=== PATIENT | female | born 1980 | race Caucasian/White ===

== ENCOUNTER 2019-01-23 10:19 | Emergency (ER) | payer MEDICAID ==
[~2019-01-23] VITALS: Ht 167.6 cm; Wt 60.1 kg
[2019-01-23 10:26] VITALS: BP 106/79
[2019-01-23] MEDS ORDERED: mupirocin 2% ointment 22GM TP ONE (11:45)
[2019-01-23] MEDS ORDERED: TETanus/Pertussis (Acell)/Diphther VAC/PF (Tdap-Adult) 0.5ml syringe IMVAC ONE (11:45)
[2019-01-23] MEDS ORDERED: MUPI22OI30 TOP (11:48)
== END 2019-01-23 12:22 | disposition home or self-care (01) ==
LOC: ER 10:20
DX: T25.011A Burn of unspecified degree of right ankle, initial encounter (principal); Z88.0 Allergy status to penicillin; X12.XXXA Contact with other hot fluids, initial encounter; Y93.89 Activity, other specified; Y92.89 Other specified places as the place of occurrence of the external cause; Y99.9 Unspecified external cause status
CPT/HCPCS: 16020; 90471; 99284

== ENCOUNTER 2019-08-07 17:02 | Emergency (ER) | payer MEDICAID ==
[~2019-08-07] VITALS: Ht 167.6 cm; Wt 56.8 kg
[~2019-08-07 17:02] MED LIST: MUPI22OI30 TOP
[2019-08-07 17:05] VITALS: BP 129/82
== END 2019-08-07 19:36 | disposition left against medical advice (07) ==
LOC: ER 17:03
DX: T14.8XXA Other injury of unspecified body region, initial encounter (principal); Z53.21 Procedure and treatment not carried out due to patient leaving prior to being seen by health care provider; X58.XXXA Exposure to other specified factors, initial encounter; Y93.89 Activity, other specified; Y92.89 Other specified places as the place of occurrence of the external cause; Y99.8 Other external cause status

== ENCOUNTER 2021-02-21 01:35 | Emergency (ER) | payer MEDICAID ==
[~2021-02-21] VITALS: Ht 165.1 cm; Wt 54.0 kg
[2021-02-21 02:12] VITALS: BP 128/91
[2021-02-21 02:33] LABS: CLARITY,URINE SLIGHTLY CLOUDY (Clear); COLOR,URINE YELLOW (Yellow); GLUCOSE, URINE NEGATIVE (Neg); KETONES,URINE NEGATIVE (Neg); LEUKOCYTE ESTERASE ,URINE NEGATIVE (Neg); NITRITES, URINE NEGATIVE (Neg); OCCULT BLOOD,URINE LARGE (Neg); PROTEIN,URINE NEGATIVE (Neg); URINE HCG NEGATIVE (NEG); UROBILINOGEN,URINE 0.2 E.U/dL (0.2-1.0)
[2021-02-21] MEDS ORDERED: metroNIDAZOLE 500mg tablet PO ONE (02:35)
[2021-02-21] MEDS ORDERED: CefTRIAXone 250MG IM Kit w/LIDOcaine IM ONE (02:35)
[2021-02-21] MEDS ORDERED: azithromycin 250mg tablet PO ONE (02:35)
[2021-02-21 02:50] LABS: UA COLLECTION TYPE CLN CATCH MIDSTREAM
[2021-02-21 02:51] LABS: MUCUS STRANDS FEW /LPF (Neg); SQUAMOUS EPITHELIAL CELL,UR FEW /LPF (FEW)
[2021-02-21 02:52] LABS: BACTERIA,URINE FEW /HPF (Neg); WBC,URINE 0-4 /HPF (0-4)
== END 2021-02-21 04:26 | disposition home or self-care (01) ==
LOC: ER 01:35
DX: R30.9 Painful micturition, unspecified (principal)
CPT/HCPCS: 36415; 81001; 81025; 87491; 87591; 96372; 99283; J0696

== ENCOUNTER 2021-03-27 17:23 | Emergency (ER) | payer MEDICAID ==
[~2021-03-27] VITALS: Ht 167.6 cm; Wt 55.0 kg
--- NOTE | 2021-03-27 17:54 | NUR ---
per poison control pt may have vomiting or nausea which should be controlled with medications. pt may have gas or abd bloating. make sure pt is able to swallow fluids prior to d/c if having difficulty may consult gi.
[2021-03-27 19:13] LABS: BASOPHILS % (AUTO) 0.1 % (0-1); EOSINOPHILS % (AUTO) 0.3 % (0-6); HEMATOCRIT 47.2 % (35.0-45.0); HEMOGLOBIN 15.9 g/dl (12.0-16.0); LYMPHOCYTES # (AUTO) 1.3 X10'3 (1.1-4.8); LYMPHOCYTES % (AUTO) 7.7 % (21-51); MEAN CORPUSCULAR HEMOGLOBIN 30.7 PG (27.0-31.0); MEAN CORPUSCULAR HGB CONC 33.7 g/dL (33.0-36.5); MEAN CORPUSCULAR VOLUME 91.1 FL (78-98); MEAN PLATELET VOLUME 8.3 FL (7.4-10.4); MONOCYTES # (AUTO) 1.1 X10'3 (0-0.9); MONOCYTES % (AUTO) 6.4 % (2-12); NEUTROPHILS % (AUTO) 85.5 % (42-75); PLATELET COUNT 270 X10'3 (140-440); RED BLOOD COUNT 5.18 X10'6 (4.20-5.60); RED CELL DISTRIBUTION WIDTH 13.6 % (11.5-14.5); WHITE BLOOD COUNT 16.4 X10'3 (4.5-11.0)
[2021-03-27 19:28] LABS: ALANINE AMINOTRANSFERASE 40 U/L (12-78); ALBUMIN 4.3 G/DL (3.4-5.0); ALBUMIN/GLOBULIN RATIO 1.3 (1.1-1.5); ALKALINE PHOSPHATASE 78 IU/L (46-116); ANION GAP 10 (8-16); ASPARTATE AMINO TRANSFERASE 49 U/L (10-37); BILIRUBIN,TOTAL 0.6 MG/DL (0.1-1.0); BLOOD UREA NITROGEN 21 MG/DL (7-18); BUN/CREATININE RATIO 31.3 (6.6-38.0); CALCIUM 8.6 MG/DL (8.5-10.1); CHLORIDE 105 MMOL/L (99-107); CREATININE 0.67 MG/DL (0.40-0.90); GLUCOSE 150 MG/DL (70-104); LIPASE 73 U/L (73-393); POTASSIUM 4.4 MMOL/L (3.5-5.1); SODIUM 140 MMOL/L (135-145); TOTAL CARBON DIOXIDE 25.4 MMOL/L (24-32); TOTAL PROTEIN 7.7 G/DL (6.4-8.2); eGFR > 90 ML/MIN
[2021-03-27] MEDS ORDERED: ondansetron 4mg rapidly disintigrating tab PO ONE (22:15)
[2021-03-27 22:39] VITALS: BP 142/90
[2021-03-27] MEDS ORDERED: dicyclomine 10 MG capsule PO ONE (23:00)
[2021-03-27] MEDS ORDERED: mag hydrox/Alum hydrox/simeth 30ml oral suspension PO ONE (23:00)
--- NOTE | 2021-03-27 23:00 | NUR ---
spoke with beryl from poison control in regards to pt condition. pt is safe to dc if she is tolerating po liquids and not aspirating or exhibiting signs of respiratory distress. nausa, vomiting expected symptoms because of patient ingesting irritant
== END 2021-03-28 01:26 | disposition home or self-care (01) ==
LOC: ER 17:24
DX: T65.891A Toxic effect of other specified substances, accidental (unintentional), initial encounter (principal); R19.7 Diarrhea, unspecified; Z88.0 Allergy status to penicillin; Z79.2 Long term (current) use of antibiotics; Y92.89 Other specified places as the place of occurrence of the external cause
CPT/HCPCS: 36415; 80053; 83690; 85025; 93005; 99284

== ENCOUNTER 2022-02-20 18:17 | Emergency (ER) | payer MEDICAID ==
[~2022-02-20] VITALS: Ht 165.1 cm; Wt 54.5 kg
[2022-02-20 19:25] VITALS: BP 135/91
[2022-02-20] MEDS ORDERED: CefTRIAXone 1000mg IM Kit (w/lidocaine diluent) IM STA (20:03)
[2022-02-20] MEDS ORDERED: DOXYCYCLINE 100MG CAPSULE PO ONE (20:05)
[2022-02-20] MEDS ORDERED: DOXY-11 PO (21:01)
[2022-02-20] MEDS ORDERED: fluconazole 150mg tablet PO ONE (21:05)
== END 2022-02-20 21:19 | disposition home or self-care (01) ==
LOC: ER 18:18
DX: L29.2 Pruritus vulvae (principal); R07.9 Chest pain, unspecified; Z88.0 Allergy status to penicillin; Z79.899 Other long term (current) drug therapy
CPT/HCPCS: 36415; 84484; 87491; 87591; 93005; 96372; 99284; J0696

== ENCOUNTER 2022-09-29 16:15 | Emergency (ER) | payer MEDICAID ==
[~2022-09-29] VITALS: Ht 165.1 cm; Wt 58.6 kg
[2022-09-29 16:33] VITALS: BP 111/81
[2022-09-29] MEDS ORDERED: ketorolac trometh inj. 60 MG/2 ML VIAL IM ONE (18:15)
[2022-09-29] MEDS ORDERED: ketorolac trometh. 30mg/ml inj. IM ONE (18:15)
[2022-09-29] MEDS ORDERED: IBUP-1986 PO (18:16)
[2022-09-29] MEDS ORDERED: CEPH-585 PO (18:16)
== END 2022-09-29 18:46 | disposition left against medical advice (07) ==
LOC: ER 16:16
DX: L03.115 Cellulitis of right lower limb (principal); Z88.0 Allergy status to penicillin; Z56.0 Unemployment, unspecified
CPT/HCPCS: 99283